=== PATIENT | female | born 1950 | race Caucasian/White ===

== ENCOUNTER → 2016-11-23 | Outpatient (CLI) | payer BC | LOC: MC.RAD 13:00 | DX: Z12.31 Encounter for screening mammogram for malignant neoplasm of breast (principal) ==

== ENCOUNTER → 2017-09-30 | Outpatient (CLI) | payer BC | LOC: MC.RAD 14:16 | DX: Z12.31 Encounter for screening mammogram for malignant neoplasm of breast (principal) ==

== ENCOUNTER → 2018-11-10 | Outpatient (CLI) | payer BC | LOC: MC.RAD 08:45 | DX: Z12.31 Encounter for screening mammogram for malignant neoplasm of breast (principal) ==

== ENCOUNTER → 2019-11-23 | Outpatient (CLI) | payer BC | LOC: MC.RAD 07:00 | DX: Z12.31 Encounter for screening mammogram for malignant neoplasm of breast (principal) ==

== ENCOUNTER 2021-03-27 07:43 | Outpatient (CLI) | payer MEDICARE ==
[~2021-03-27] VITALS: Ht 170.2 cm; Wt 81.8 kg
[2021-03-27] VITALS (7 sets, daily range): BP systolic 101–126; BP diastolic 60–69; PULSE 80–93; TEMP 100.1
[2021-03-27] MEDS ORDERED: ASPIRIN 32325 MG/TAB PO (09:44)
[2021-03-27] MEDS ORDERED: VITAMIN C500 MG PO (09:51)
[2021-03-27] MEDS ORDERED: VITAMIN D 400400 IU PO (09:52)
[2021-03-27] MEDS ORDERED: ALEVE 220MG220 MG PO (09:52)
[2021-03-27] MEDS ORDERED: TYLENOL 500MG500 MG PO (09:53)
[2021-03-27] MEDS ORDERED: ivermectin (09:54)
== END 2021-03-27 11:59 ==
LOC: EUO 07:43
DX: U07.1 COVID-19 (principal)
CPT/HCPCS: M0243

== ENCOUNTER → 2021-04-29 | Outpatient (CLI) | payer BC, MEDICARE ==
[~2021-04-29] MED LIST: ALEVE 220MG220 MG PO; ASPIRIN 32325 MG/TAB PO; TYLENOL 500MG500 MG PO; VITAMIN C500 MG PO; VITAMIN D 400400 IU PO; ivermectin
== END ==
LOC: MC.RAD 08:51
DX: Z12.31 Encounter for screening mammogram for malignant neoplasm of breast (principal)

== ENCOUNTER → 2022-07-15 | Outpatient (CLI) | payer MEDICARE | LOC: MC.RAD 08:29 | DX: Z12.31 Encounter for screening mammogram for malignant neoplasm of breast (principal) ==

== ENCOUNTER → 2024-02-02 | Outpatient (CLI) | payer MEDICARE ==
[~2024-02-02] MED LIST changes: +ASPIRIN E.C. 8181 MG PO; +BALANCE B-1001 TA1 PO; +CALCIUM-MAGNES1 EAC1 PO; +JOINT PO; +ONCOVITE1 TAB PO; +PRESERVISION1 SGL PO; +SKIN PO; +[UNRECOGNIZED DRUG - OTHER] PO; +[UNRECOGNIZED DRUG - REMARK] PO
== END ==
LOC: MC.RAD 08:30
DX: Z12.31 Encounter for screening mammogram for malignant neoplasm of breast (principal)